=== PATIENT | female | born 1980 | race Caucasian/White ===

== ENCOUNTER 2023-07-06 13:23 | Emergency (ER) | payer OTHER ==
[2023-07-06 13:42] VITALS: BP 99/58; PULSE 78; RESP 18; TEMP 97.8; BMI 27.8
[2023-07-06 14:50] LABS: HCG,QUALITATIVE URINE Negative
[2023-07-06 14:52] LABS: EPI CELLS >36 /uL (0-25.1); HYALINE CASTS 5 /uL (0-3.1); PH,URINE 5.5 (5.0-8.0); URINE APPEARANCE CLOUDY; URINE BACTERIA 3921 /uL (0-1359); URINE BILIRUBIN NEGATIVE (NEGATIVE); URINE COLOR YELLOW; URINE GLUCOSE (UA) NEGATIVE (NEGATIVE); URINE KETONE TRACE (NEGATIVE); URINE LEUK ESTERASE 1+ (NEGATIVE); URINE NITRITE NEGATIVE (NEGATIVE); URINE PROTEIN TRACE (NEGATIVE); URINE WBC 112 /uL (0-25.8)
[2023-07-06] MEDS ORDERED: CEPHALEXIN MONOHYDRATE 500 MG CAPSULE (UD) PO ONE (15:14)
[2023-07-06] MEDS ORDERED: CEPHALEXIN MONOHYDRATE 500 MG CAPSULE (UD) ONE (15:26)
[2023-07-06 15:32] LABS: URINE RBC 764 /uL (0-23.9)
== END 2023-07-06 15:33 | disposition home or self-care (01) ==
LOC: JERFT 13:23 → JER 13:23 → JERFT 15:33
DX: M54.50 Low back pain, unspecified (principal); N30.01 Acute cystitis with hematuria
CPT/HCPCS: 81003; 84703; 87086; 87186; 99283-25